=== PATIENT | female | born 1990 | race Caucasian/White ===

== ENCOUNTER 2020-06-12 19:10 | Emergency (ER) | payer OTHER ==
[2020-06-12] MEDS ORDERED: Bacitracin Oint 1 GM U/D Packet TOP ONE (19:19)
[2020-06-12] MEDS ORDERED: HYDROmorphone 1 MG/ML Syringe IM ONE (19:19)
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
== END 2020-06-12 21:36 | disposition home or self-care (01) ==
LOC: JP.ED 19:10
DX: T21.22XA Burn of second degree of abdominal wall, initial encounter (principal); T24.211A Burn of second degree of right thigh, initial encounter; T23.201A Burn of second degree of right hand, unspecified site, initial encounter; T25.221A Burn of second degree of right foot, initial encounter; X11.8XXA Contact with other hot tap-water, initial encounter
CPT/HCPCS: 16000; 16020; 96372; 99283; 99283-25; J1170